=== PATIENT | male | born 1940 | race Asian ===

== ENCOUNTER 2018-04-13 19:59 | Emergency (ER) | payer OTHER ==
[~2018-04-13] VITALS: Ht 160 cm; Wt 63.5 kg
[2018-04-13 20:06] VITALS: Ht 160 cm; Wt 63.5 kg
[2018-04-13 21:44] VITALS: BP 190/94
== END 2018-04-13 21:44 | disposition home or self-care (01) ==
LOC: ED 19:59
DX: S80.11XA Contusion of right lower leg, initial encounter (principal); S09.90XA Unspecified injury of head, initial encounter; I10 Essential (primary) hypertension; E78.00 Pure hypercholesterolemia, unspecified; V23.4XXA Motorcycle driver injured in collision with car, pick-up truck or van in traffic accident, initial encounter; Y93.I9 Activity, other involving external motion; Y92.89 Other specified places as the place of occurrence of the external cause; Y99.8 Other external cause status